=== PATIENT | female | born 1955 | race Caucasian/White ===

== ENCOUNTER 2022-09-08 09:12 | Inpatient (IN) | payer MEDICARE, MEDICAID ==
[~2022-09-08] VITALS: Ht 170.2 cm; Wt 101.3 kg
[2022-09-08] MEDS ORDERED: metoclopramide 5 mg/ml inj IV ONE (09:25)
[2022-09-08 09:50] LABS: BASOPHILS # (AUTO) 0.1 X10'3 (0-0.2); BASOPHILS % (AUTO) 0.8 % (0-1); EOSINOPHILS # (AUTO) 0.1 X10'3 (0-0.9); EOSINOPHILS % (AUTO) 1.8 % (0-6); HEMATOCRIT 47.2 % (35.0-45.0); HEMOGLOBIN 15.7 g/dl (12.0-16.0); LYMPHOCYTES # (AUTO) 2.1 X10'3 (1.1-4.8); LYMPHOCYTES % (AUTO) 25.7 % (21-51); MEAN CORPUSCULAR HEMOGLOBIN 30.4 PG (27.0-31.0); MEAN CORPUSCULAR HGB CONC 33.3 g/dL (33.0-36.5); MEAN CORPUSCULAR VOLUME 91.2 FL (78-98); MEAN PLATELET VOLUME 8.8 FL (7.4-10.4); MONOCYTES # (AUTO) 0.7 X10'3 (0-0.9); MONOCYTES % (AUTO) 8.4 % (2-12); NEUTROPHILS # (AUTO) 5.3 X10'3 (1.8-7.7); NEUTROPHILS % (AUTO) 63.3 % (42-75); PLATELET COUNT 221 X10'3 (140-440); RED BLOOD COUNT 5.18 X10'6 (4.20-5.60); WHITE BLOOD COUNT 8.4 X10'3 (4.5-11.0)
[2022-09-08 10:04] LABS: ALANINE AMINOTRANSFERASE 25 U/L (12-78); ALBUMIN 3.3 G/DL (3.4-5.0); ALKALINE PHOSPHATASE 85 IU/L (46-116); ANION GAP 6 (8-16); ASPARTATE AMINO TRANSFERASE 18 U/L (10-37); BILIRUBIN,TOTAL 0.4 MG/DL (0.1-1.0); BLOOD UREA NITROGEN 22 MG/DL (7-18); BUN/CREATININE RATIO 17.6 (10.0-20.0); CHLORIDE 102 MMOL/L (99-107); CREATININE 1.25 MG/DL (0.40-0.90); GLUCOSE 354 MG/DL (70-104); POTASSIUM 4.2 MMOL/L (3.5-5.1); SODIUM 141 MMOL/L (135-145); TOTAL CARBON DIOXIDE 33.5 MMOL/L (24-32); TOTAL PROTEIN 6.5 G/DL (6.4-8.2); eGFR 43 ML/MIN
[2022-09-08] MEDS ORDERED: ondansetron/PF 4mg/2ml inj IV PRN (10:55)
[2022-09-08] MEDS ORDERED: HYDROcodone/acetaminophen 5mg/325mg tablet PO PRN (10:55)
[2022-09-08] MEDS ORDERED: glucagon, human recombinant 1mg kit SUBCUT PRN (10:55)
[2022-09-08] MEDS ORDERED: MESSAGE TO PHARMACY PO ONE (10:55)
[2022-09-08] MEDS ORDERED: morphine 2 MG/ML inj. syringe IV PRN ×2 (10:55)
[2022-09-08] MEDS ORDERED: acetaminophen 325mg tablet PO PRN ×2 (10:55)
[2022-09-08] MEDS ORDERED: mag hydrox/Alum hydrox/simeth 30ml oral suspension PO PRN (10:55)
[2022-09-08] MEDS ORDERED: magnesium hydroxide 30ml (MOM) UD suspension PO PRN (10:55)
[2022-09-08] MEDS ORDERED: dextrose 50%-water 50ml dispensing syringe IV PRN ×2 (10:55)
[2022-09-08] MEDS ORDERED: DEXTROSE 15 GM of carb/4 tabs (each vial/BOTTLE has 4 tablets) PO PRN ×2 (10:55)
--- NOTE | 2022-09-08 12:23 | NUR ---
received report from PICKER OPERATORCHERY Woods. Will be coming up on a gurney.
--- NOTE | 2022-09-08 12:45 | NUR ---
Patient arrived to unit from ER via wheel chair.
--- NOTE | 2022-09-08 12:52 | NUR ---
PAGER ID: [phone] MESSAGE: [id number] Niurka Critical Troponin 81. Thank you Jessika MAS [phone]
[2022-09-08 12:57] LABS: HEMOGLOBIN A1C 10.2 % (4.5-6.2)
[2022-09-08 13:00] VITALS: BP 136/83
[2022-09-08 15:00] VITALS: BP 121/70
--- NOTE | 2022-09-08 15:54 | NUR ---
PAGER ID: [phone] MESSAGE: [id number] Niurka Critical Trop 71. Thank you Jessika MAS [phone]
[2022-09-08] MEDS ORDERED: DULO30CA52 PO (16:26)
[2022-09-08] MEDS ORDERED: GLIP5TAB13 PO (16:26)
[2022-09-08] MEDS ORDERED: ASPI-1397 PO (16:26)
[2022-09-08] MEDS ORDERED: GABA-530 PO (16:26)
[2022-09-08] MEDS ORDERED: PREG100C55 PO (16:26)
[2022-09-08] MEDS ORDERED: INSU100I31 SQ (16:26)
[2022-09-08] MEDS ORDERED: ALBU18HF2 PO (16:26)
[2022-09-08] MEDS ORDERED: ATOR20TA66 PO (16:26)
[2022-09-08] MEDS ORDERED: LEVO150T8 PO (16:26)
[2022-09-08] MEDS ORDERED: TIOT4MIS2 INH (16:26)
[2022-09-08] MEDS ORDERED: CARV25TA2 PO (16:26)
[2022-09-08] MEDS ORDERED: LORA-268 PO (16:26)
[2022-09-08] MEDS ORDERED: INSU200I SQ (16:29)
--- NOTE | 2022-09-08 16:33 | NUR ---
Unable to cover patient's lunch BG due to Humalog not on floor and pharmacy hasn't brought it up in a quick enough fashion.
[2022-09-08] MEDS ORDERED: LOSA100T58 PO (16:34)
--- NOTE | 2022-09-08 17:37 | NUR ---
I agree with INTERACTIVE DEVELOPER assessment.
--- NOTE | 2022-09-08 18:23 | NUR ---
Problems reprioritized. Patient report given, questions answered & plan of care reviewed with Holger MAS.
[2022-09-08] MEDS: insulin Lispro (HumaLOG) vial - multi-dose SQ SCH (19:03)
[2022-09-08] MEDS: docusate sod 100mg capsule PO SCH (19:07)
[2022-09-08] MEDS: HYDROcodone/acetaminophen 10/325mg tab PO PRN (19:11)
[2022-09-08] MEDS ORDERED: insulin glargine (Lantus) pen - multi-dose SQ SCH (21:00)
[2022-09-08] MEDS: LORazepam 0.5 MG tablet PO PRN (21:41)
[2022-09-08] MEDS: methylPREDNISolone sod succ/PF 40mg inj. IV SCH (21:48)
[2022-09-08] MEDS ORDERED: gabapentin 300mg capsule PO PRN (22:10)
[2022-09-08] MEDS ORDERED: albuterol 2.5 MG/3 ML nebule NEB PRN (22:10)
[2022-09-09] MEDS: ipratropium 0.5 MG/2.5ML nebule IH SCH ×4 (01:05→20:39)
[2022-09-09] MEDS: HYDROcodone/acetaminophen 10/325mg tab PO PRN ×5 (01:18→22:33)
[2022-09-09 02:00] VITALS: BP 127/80
--- NOTE | 2022-09-09 02:19 | NUR ---
I AGREE WITH PHYSICS PROFESSOR ASSESSMENT
[2022-09-09 06:00] VITALS: BP 116/64
--- NOTE | 2022-09-09 06:31 | NUR ---
Patient in room PCU 3025. I have received report from Holger MAS and had the opportunity to ask questions and assume patient care.
[2022-09-09 06:51] LABS: BASOPHILS % (AUTO) 0.2 % (0-1); EOSINOPHILS % (AUTO) 0 % (0-6); HEMATOCRIT 45.3 % (35.0-45.0); HEMOGLOBIN 15.1 g/dl (12.0-16.0); LYMPHOCYTES # (AUTO) 0.8 X10'3 (1.1-4.8); LYMPHOCYTES % (AUTO) 11.3 % (21-51); MEAN CORPUSCULAR HEMOGLOBIN 30.5 PG (27.0-31.0); MEAN CORPUSCULAR HGB CONC 33.2 g/dL (33.0-36.5); MEAN CORPUSCULAR VOLUME 91.8 FL (78-98); MEAN PLATELET VOLUME 8.8 FL (7.4-10.4); MONOCYTES # (AUTO) 0.1 X10'3 (0-0.9); MONOCYTES % (AUTO) 1.1 % (2-12); NEUTROPHILS # (AUTO) 6.1 X10'3 (1.8-7.7); NEUTROPHILS % (AUTO) 87.4 % (42-75); PLATELET COUNT 193 X10'3 (140-440); RED BLOOD COUNT 4.94 X10'6 (4.20-5.60); RED CELL DISTRIBUTION WIDTH 13.7 % (11.5-14.5)
[2022-09-09] MEDS ORDERED: levoTHYROXINE 75mcg tablet PO SCH (07:00)
[2022-09-09 07:09] LABS: ALBUMIN 3.1 G/DL (3.4-5.0); ANION GAP 6 (8-16); BLOOD UREA NITROGEN 20 MG/DL (7-18); BUN/CREATININE RATIO 18.9 (10.0-20.0); CALCIUM 9.1 MG/DL (8.5-10.1); CHLORIDE 99 MMOL/L (99-107); CREATININE 1.06 MG/DL (0.40-0.90); GLUCOSE 417 MG/DL (70-104); POTASSIUM 4.4 MMOL/L (3.5-5.1); SODIUM 136 MMOL/L (135-145); TOTAL CARBON DIOXIDE 30.6 MMOL/L (24-32); eGFR 52 ML/MIN
[2022-09-09 07:56] VITALS: BP 143/89
[2022-09-09] MEDS ORDERED: losartan 50mg tablet PO SCH (08:00)
--- NOTE | 2022-09-09 08:00 | NUR ---
Patient refused scheduled levothyroxine as she is requesting it be administered at 0600. Also refused scheduled losartan, she reports that she takes this in the evenings. MD at bedside, received orders to change medication times to patient preferred.
[2022-09-09] MEDS: carVEDilol 12.5mg tablet PO SCH ×2 (08:10→20:00)
[2022-09-09] MEDS: aspirin 81mg, enteric-coated 1 TAB TABLET.DR PO SCH (08:10)
[2022-09-09] MEDS: duloxetine 30mg CAPSULE.DR PO SCH ×2 (08:11→20:56)
[2022-09-09] MEDS: docusate sod 100mg capsule PO SCH ×2 (08:11→20:00)
[2022-09-09] MEDS: pregabalin 25mg capsule PO SCH ×3 (08:12→20:53)
[2022-09-09] MEDS: LORazepam 0.5 MG tablet PO SCH ×3 (08:13→20:52)
[2022-09-09] MEDS: enoxaparin 40mg/0.4ml syringe SUBCUT SCH (08:14)
[2022-09-09] MEDS: methylPREDNISolone sod succ/PF 40mg inj. IV SCH ×2 (08:19→21:07)
[2022-09-09] MEDS: levoFLOXACIN-Levaquin 750MG/D5 150 ML IV SCH (08:26)
--- NOTE | 2022-09-09 08:55 | NUR ---
PAGER ID: [phone] MESSAGE: [id number]: Peggy Bah- Patient states that her whole body is burning after start of Levaquin IV. Temp is WNL 98.0 Adiel Barajas [id number] Addendum: 09/09/22 at 0859 by Jenn Graham LVN, LVN Levaquin was stopped. Received telephone order to decrease rate and monitor patient. RN to initiate ABO, LN will monitor Addendum: 09/09/22 at 1137 by Jenn Graham LVN, LVN Levaquin infused, no s/sx of AR/SE noted. Patient tolerated well.
[2022-09-09] MEDS: insulin Lispro (HumaLOG) vial - multi-dose SQ SCH ×5 (09:08→21:32)
[2022-09-09 11:00] VITALS: BP 122/61
--- NOTE | 2022-09-09 11:37 | NUR ---
PAGER ID: [phone] MESSAGE: [id number]- Peggy Bah: Pt BG noted 454. Received 21 units humalog after breakfast, did not receive Lantus last night. Adiel Barajas [id number] Addendum: 09/09/22 at 1327 by Jenn Graham LVN CARDIAC MONITOR TECHNICIAN Dr. Vasquez to the floor. Received order for 50 units lantus to be administered BID. To start now, order entered. Pharmacist called and stated that they needed to consult with Dr. Vasquez as patient is on protocol. Awaiting pharmacy response. Called pharmacy for an update but stated that they will call me back
--- NOTE | 2022-09-09 12:23 | NUR ---
DM Consult: Pt hx T2DM A1C 10.2% w/ no home meds listed in EMR. Glu 454mg/dl on solumedrol and glycemic protocol though did not get first scheduled Lantus dose last night per EMR. RD attempted DM diet ed though pt reports not feeling well and having issues w/ information retention; is agreeable to deferring ed until more appropriate time. RD notified HUMAN RESOURCES SPECIALIST/RN of pt reported mentation issues and placed written DM diet ed w/ RD contact information in pt chart. Will defer verbal ed until pt more appropriate. Addendum: 09/09/22 at [address] Amended: Links added.
[2022-09-09] MEDS ORDERED: insulin glargine (Lantus) pen - multi-dose SQ SCH (13:55)
[2022-09-09 15:00] VITALS: BP 108/54
--- NOTE | 2022-09-09 15:13 | NUR ---
PAGER ID: [phone] MESSAGE: [id number] Aldridge: noted 464, has increased. 1 hr since administration of lantus and 24 units humalog. Adiel Ruiz Addendum: 09/09/22 at 1608 by Jenn Graham LVN, LVN No new orders, second page sent PAGER ID: [phone] MESSAGE: [id number]- [id number] Aldridge: increasing, patient states she feels confused. Want any labs or 1x dose of short acting? Adiel Ruiz Addendum: 09/09/22 at 1631 by Jenn Graham LVN TOWER CONTROL OPERATOR No new orders at this time, will continue to monitor
[2022-09-09] MEDS ORDERED: gabapentin 300mg capsule PO PRN (16:27)
--- NOTE | 2022-09-09 18:48 | NUR ---
Problems reprioritized. Patient report given, questions answered & plan of care reviewed with Belkis GOTTLIEB
[2022-09-09 19:00] VITALS: BP 95/67
[2022-09-09] MEDS: losartan 50mg tablet PO SCH (19:00)
[2022-09-09] MEDS: atorvastatin 20mg tablet PO SCH (20:57)
[2022-09-10] VITALS: BP 128/93
[2022-09-10] MEDS: HYDROcodone/acetaminophen 10/325mg tab PO PRN ×4 (02:37→21:40)
[2022-09-10] MEDS: ipratropium 0.5 MG/2.5ML nebule IH SCH ×4 (02:47→20:16)
[2022-09-10] MEDS: levoTHYROXINE 75mcg tablet PO SCH (06:01)
--- NOTE | 2022-09-10 06:31 | NUR ---
Problems reprioritized. Patient report given, questions answered & plan of care reviewed with Jacquelyn GOTTLIEB.
[2022-09-10 06:33] LABS: ALBUMIN 3.2 G/DL (3.4-5.0); ANION GAP 2 (8-16); BLOOD UREA NITROGEN 26 MG/DL (7-18); BUN/CREATININE RATIO 24.8 (10.0-20.0); CALCIUM 8.8 MG/DL (8.5-10.1); CHLORIDE 99 MMOL/L (99-107); CREATININE 1.05 MG/DL (0.40-0.90); GLUCOSE 366 MG/DL (70-104); POTASSIUM 4.7 MMOL/L (3.5-5.1); SODIUM 135 MMOL/L (135-145); TOTAL CARBON DIOXIDE 34.3 MMOL/L (24-32); eGFR 52 ML/MIN
[2022-09-10 06:35] LABS: BASOPHILS % (AUTO) 0.1 % (0-1); EOSINOPHILS % (AUTO) 0 % (0-6); HEMATOCRIT 45.8 % (35.0-45.0); HEMOGLOBIN 15.1 g/dl (12.0-16.0); LYMPHOCYTES # (AUTO) 1.5 X10'3 (1.1-4.8); MEAN CORPUSCULAR HEMOGLOBIN 30.1 PG (27.0-31.0); MEAN CORPUSCULAR VOLUME 91.1 FL (78-98); MONOCYTES # (AUTO) 0.5 X10'3 (0-0.9); MONOCYTES % (AUTO) 3.5 % (2-12); NEUTROPHILS # (AUTO) 12.8 X10'3 (1.8-7.7); NEUTROPHILS % (AUTO) 86.4 % (42-75); PLATELET COUNT 219 X10'3 (140-440); RED BLOOD COUNT 5.03 X10'6 (4.20-5.60); RED CELL DISTRIBUTION WIDTH 13.3 % (11.5-14.5); WHITE BLOOD COUNT 14.8 X10'3 (4.5-11.0)
[2022-09-10 07:20] VITALS: BP 122/78
[2022-09-10] MEDS ORDERED: insulin glargine (Lantus) pen - multi-dose SQ SCH (08:00)
[2022-09-10] MEDS: aspirin 81mg, enteric-coated 1 TAB TABLET.DR PO SCH (08:06)
[2022-09-10] MEDS: docusate sod 100mg capsule PO SCH ×2 (08:06→20:00)
[2022-09-10] MEDS: pregabalin 25mg capsule PO SCH ×3 (08:06→20:48)
[2022-09-10] MEDS: methylPREDNISolone sod succ/PF 40mg inj. IV SCH ×2 (08:06→20:47)
[2022-09-10] MEDS: losartan 50mg tablet PO SCH (08:07)
[2022-09-10] MEDS: enoxaparin 40mg/0.4ml syringe SUBCUT SCH (08:07)
[2022-09-10] MEDS: duloxetine 30mg CAPSULE.DR PO SCH ×2 (08:07→20:47)
[2022-09-10] MEDS: carVEDilol 12.5mg tablet PO SCH ×2 (08:07→20:48)
[2022-09-10] MEDS: LORazepam 0.5 MG tablet PO SCH ×3 (08:07→20:48)
[2022-09-10] MEDS: levoFLOXACIN-Levaquin 750MG/D5 150 ML IV SCH (08:08)
[2022-09-10] MEDS: insulin glargine (Lantus) pen - multi-dose SQ SCH (08:22)
[2022-09-10] MEDS: insulin Lispro (HumaLOG) vial - multi-dose SQ SCH ×4 (08:24→23:02)
[2022-09-10 11:21] VITALS: BP 108/58
[2022-09-10 15:22] VITALS: BP 133/63
[2022-09-10 18:00] VITALS: BP 127/57
--- NOTE | 2022-09-10 18:19 | NUR ---
Problems reprioritized. Patient report given, questions answered & plan of care reviewed with CHERY Tamayo.
--- NOTE | 2022-09-10 18:25 | NUR ---
PAGER ID: [phone] MESSAGE: [id number] Bipin Bah: patient just informed me that her roommate is covid positive. she was not tested on admission would you like a covid test? thank you! noemí [phone]
[2022-09-10] MEDS: atorvastatin 20mg tablet PO SCH (20:48)
[2022-09-11 02:00] VITALS: BP 135/84
[2022-09-11] MEDS: ipratropium 0.5 MG/2.5ML nebule IH SCH ×4 (02:53→20:30)
[2022-09-11] MEDS: levoTHYROXINE 75mcg tablet PO SCH (06:48)
--- NOTE | 2022-09-11 06:51 | NUR ---
Problems reprioritized. Patient report given, questions answered & plan of care reviewed with Jacquelyn GOTTLIEB.
[2022-09-11 07:00] VITALS: BP 134/72
[2022-09-11 07:49] LABS: BASOPHILS # (AUTO) 0.1 X10'3 (0-0.2); BASOPHILS % (AUTO) 0.5 % (0-1); EOSINOPHILS % (AUTO) 0.3 % (0-6); HEMATOCRIT 43.7 % (35.0-45.0); HEMOGLOBIN 14.4 g/dl (12.0-16.0); LYMPHOCYTES # (AUTO) 2.3 X10'3 (1.1-4.8); LYMPHOCYTES % (AUTO) 20.2 % (21-51); MEAN CORPUSCULAR HEMOGLOBIN 30.4 PG (27.0-31.0); MEAN CORPUSCULAR HGB CONC 33.1 g/dL (33.0-36.5); MEAN CORPUSCULAR VOLUME 91.8 FL (78-98); MEAN PLATELET VOLUME 8.7 FL (7.4-10.4); MONOCYTES # (AUTO) 1.1 X10'3 (0-0.9); MONOCYTES % (AUTO) 9.9 % (2-12); NEUTROPHILS # (AUTO) 7.9 X10'3 (1.8-7.7); NEUTROPHILS % (AUTO) 69.1 % (42-75); PLATELET COUNT 211 X10'3 (140-440); RED BLOOD COUNT 4.76 X10'6 (4.20-5.60); RED CELL DISTRIBUTION WIDTH 13.8 % (11.5-14.5); WHITE BLOOD COUNT 11.4 X10'3 (4.5-11.0)
[2022-09-11] MEDS: duloxetine 30mg CAPSULE.DR PO SCH ×2 (07:53→21:26)
[2022-09-11] MEDS: carVEDilol 12.5mg tablet PO SCH ×2 (07:54→21:28)
[2022-09-11] MEDS: docusate sod 100mg capsule PO SCH ×2 (07:54→21:25)
[2022-09-11] MEDS: losartan 50mg tablet PO SCH (07:54)
[2022-09-11] MEDS: aspirin 81mg, enteric-coated 1 TAB TABLET.DR PO SCH (07:54)
[2022-09-11] MEDS: LORazepam 0.5 MG tablet PO SCH ×3 (07:54→21:28)
[2022-09-11] MEDS: pregabalin 25mg capsule PO SCH ×3 (07:54→21:25)
[2022-09-11] MEDS: methylPREDNISolone sod succ/PF 40mg inj. IV SCH ×2 (07:54→21:25)
[2022-09-11] MEDS: enoxaparin 40mg/0.4ml syringe SUBCUT SCH (07:55)
[2022-09-11] MEDS: levoFLOXACIN-Levaquin 750MG/D5 150 ML IV SCH (07:55)
[2022-09-11 08:00] LABS: ALBUMIN 2.8 G/DL (3.4-5.0); ANION GAP -1 (8-16); BLOOD UREA NITROGEN 28 MG/DL (7-18); BUN/CREATININE RATIO 27.7 (10.0-20.0); CALCIUM 8.8 MG/DL (8.5-10.1); CHLORIDE 104 MMOL/L (99-107); CREATININE 1.01 MG/DL (0.40-0.90); GLUCOSE 162 MG/DL (70-104); POTASSIUM 3.7 MMOL/L (3.5-5.1); SODIUM 139 MMOL/L (135-145); eGFR 55 ML/MIN
[2022-09-11] MEDS: insulin glargine (Lantus) pen - multi-dose SQ SCH ×2 (08:00→23:20)
[2022-09-11] MEDS: insulin Lispro (HumaLOG) vial - multi-dose SQ SCH ×4 (08:10→23:21)
[2022-09-11] MEDS ORDERED: LEVO750T68 PO (08:15)
[2022-09-11] MEDS ORDERED: PRED10TA23 PO (08:15)
[2022-09-11] MEDS ORDERED: HYDR-3965 PO (08:16)
[2022-09-11] MEDS ORDERED: ALBU6.7H14 INH (08:16)
[2022-09-11 11:01] VITALS: BP 159/96
--- NOTE | 2022-09-11 13:15 | NUR ---
PAGER ID: [phone] MESSAGE: [id number] Bipin Bah: patient is now requesting that she be covid swabbed. she states she is starting to cough and her throat hurts. thank you! noemí [phone]
[2022-09-11] MEDS: HYDROcodone/acetaminophen 10/325mg tab PO PRN ×2 (15:31→21:35)
--- NOTE | 2022-09-11 15:51 | NUR ---
PAGER ID: [phone] MESSAGE: [id number] Bipin Bah: patient not feeling well, checked her bs and it was 445. she did refuse her lantus dose this am. she says she takes 50 of lantus BID would you like her night time dose given? edmund, noemí [phone]
[2022-09-11 16:02] VITALS: BP 135/68
[2022-09-11 18:00] VITALS: BP 102/48
--- NOTE | 2022-09-11 18:24 | NUR ---
Problems reprioritized. Patient report given, questions answered & plan of care reviewed with CHERY Montilla.
--- NOTE | 2022-09-11 18:39 | NUR ---
Patient in room PCU 3025. I have received report from Jacquelyn GOTTLIEB and had the opportunity to ask questions and assume patient care.
[2022-09-11] MEDS: atorvastatin 20mg tablet PO SCH (21:27)
[2022-09-11 22:00] VITALS: BP 102/48
[2022-09-11] MEDS: LORazepam 0.5 MG tablet PO PRN (23:34)
[2022-09-12 02:00] VITALS: BP 122/65
[2022-09-12] MEDS: ipratropium 0.5 MG/2.5ML nebule IH SCH ×2 (02:58→08:23)
[2022-09-12 07:00] VITALS: BP 151/80
[2022-09-12 07:26] LABS: BASOPHILS % (AUTO) 0.1 % (0-1); EOSINOPHILS % (AUTO) 0 % (0-6); HEMATOCRIT 43.7 % (35.0-45.0); HEMOGLOBIN 14.5 g/dl (12.0-16.0); LYMPHOCYTES # (AUTO) 1.1 X10'3 (1.1-4.8); LYMPHOCYTES % (AUTO) 11.3 % (21-51); MEAN CORPUSCULAR HEMOGLOBIN 30.4 PG (27.0-31.0); MEAN CORPUSCULAR HGB CONC 33.2 g/dL (33.0-36.5); MEAN CORPUSCULAR VOLUME 91.4 FL (78-98); MEAN PLATELET VOLUME 8.9 FL (7.4-10.4); MONOCYTES # (AUTO) 0.5 X10'3 (0-0.9); MONOCYTES % (AUTO) 5.3 % (2-12); NEUTROPHILS # (AUTO) 8.1 X10'3 (1.8-7.7); NEUTROPHILS % (AUTO) 83.3 % (42-75); PLATELET COUNT 223 X10'3 (140-440); RED BLOOD COUNT 4.79 X10'6 (4.20-5.60); RED CELL DISTRIBUTION WIDTH 13.5 % (11.5-14.5); WHITE BLOOD COUNT 9.7 X10'3 (4.5-11.0)
[2022-09-12 07:31] LABS: ANION GAP 1 (8-16); BLOOD UREA NITROGEN 31 MG/DL (7-18); CALCIUM 9.2 MG/DL (8.5-10.1); CHLORIDE 101 MMOL/L (99-107); CREATININE 0.97 MG/DL (0.40-0.90); GLUCOSE 331 MG/DL (70-104); POTASSIUM 4.6 MMOL/L (3.5-5.1); SODIUM 137 MMOL/L (135-145); TOTAL CARBON DIOXIDE 34.6 MMOL/L (24-32); eGFR 57 ML/MIN
[2022-09-12] MEDS: aspirin 81mg, enteric-coated 1 TAB TABLET.DR PO SCH (07:36)
[2022-09-12] MEDS: pregabalin 25mg capsule PO SCH (07:36)
[2022-09-12] MEDS: docusate sod 100mg capsule PO SCH (07:36)
[2022-09-12 07:37] VITALS: BP_SYST 150
[2022-09-12] MEDS: LORazepam 0.5 MG tablet PO SCH (07:37)
[2022-09-12] MEDS: levoTHYROXINE 75mcg tablet PO SCH (07:37)
[2022-09-12] MEDS: losartan 50mg tablet PO SCH (07:37)
[2022-09-12] MEDS: carVEDilol 12.5mg tablet PO SCH (07:37)
[2022-09-12] MEDS: duloxetine 30mg CAPSULE.DR PO SCH (07:38)
[2022-09-12] MEDS: enoxaparin 40mg/0.4ml syringe SUBCUT SCH (07:39)
[2022-09-12] MEDS: methylPREDNISolone sod succ/PF 40mg inj. IV SCH (07:39)
[2022-09-12] MEDS: insulin Lispro (HumaLOG) vial - multi-dose SQ SCH ×2 (08:58→12:02)
[2022-09-12] MEDS ORDERED: levoFLOXACIN 750MG TABLET PO SCH (11:00)
== END 2022-09-12 12:21 | disposition home or self-care (01) | DRG 193 ==
LOC: ER 09:13 → ED HOLD 10:55 → PCU 3S 12:42
PROVIDERS: ADMIT Internal Medicine; ATTEND Internal Medicine
DX: J18.9 Pneumonia, unspecified organism (principal); I21.4 Non-ST elevation (NSTEMI) myocardial infarction; J96.21 Acute and chronic respiratory failure with hypoxia; J44.0 Chronic obstructive pulmonary disease with (acute) lower respiratory infection; J44.1 Chronic obstructive pulmonary disease with (acute) exacerbation; E78.5 Hyperlipidemia, unspecified; E03.9 Hypothyroidism, unspecified; G89.29 Other chronic pain; E11.9 Type 2 diabetes mellitus without complications; I10 Essential (primary) hypertension; Z79.4 Long term (current) use of insulin; Z79.82 Long term (current) use of aspirin; Z79.84 Long term (current) use of oral hypoglycemic drugs; Z79.899 Other long term (current) drug therapy; Z83.3 Family history of diabetes mellitus; Z90.710 Acquired absence of both cervix and uterus; Z87.891 Personal history of nicotine dependence
CPT/HCPCS: 36415; 71045; 80048; 80053; 82948; 83036; 83880; 84443; 84484; 85025; 87040; 87081; 93005; 94640; 94760; 97161; 97530; 99285; G0378; J1650; J1815; J1956; J2405; J2765; J2920; J7040